=== PATIENT | male | born 1995 | race Caucasian/White ===

== ENCOUNTER 2018-09-22 17:11 | Emergency (ER) | payer BC, OTHER ==
[2018-09-22 17:28] VITALS: BP 152/76
--- NOTE | 2018-09-22 18:17 | UC ---
Eye Complaint HPI - HPI Summary HPI Summary: 23 y/o male presents to the urgent care c/o of left eye irritation and mild pain in the left upper eye lid for the past week. Pain at touch is 2/10. He has applied some lubricant eye drops and hot washcloth w/o any improvement. Pt denies visual changes, ONEILL, dizziness, fever, URI, abdominal pain, N/V/D, eye discharge, photophobia,FB, . Pt is not wearing contact lenses. - History of Current Complaint Chief Complaint: UCEye Stated Complaint: LEFT EYE CONCERN Time Seen by Provider: 09/22/18 17:45 Hx Obtained From: Patient Onset/Duration: Gradual Onset, Lasting Weeks - 1 week, Still Present, Worse Since - today Timing: Constant Severity Initially: Mild Severity Currently: Mild Pain Intensity: 2 Pain Scale Used: 0-10 Numeric Location of Injury: Eye Lid (upper) - left upper eyelid pain Character: Dull Aggravating Factor(s): Blinking Alleviating Factor(s): Nothing Associated Signs And Symptoms: Negative: Negative, Photophobia, Drainage (Clear) , Drainage (Purulent), Vision Impairment Bilateral, Fever, Swelling - Risk Factors Penetrating Injury Risk Factor: Negative Globe Rupture Risk Factors: Negative Acute Glaucoma Risk Factors: Negative Optic Artery Occlusion Risk Factors: Negative - Allergies/Home Medications Allergies/Adverse Reactions: Allergies Allergy/AdvReac Type Severity Reaction Status Date / Time No Known Allergies Allergy Verified 09/22/18 17:24 PMH/Surg Hx/FS Hx/Imm Hx Previously Healthy: Yes - Pt denies PMHX - Surgical History Surgical History: None - Family History Known Family History: Positive: None - Pt denies FMHX - Social History Occupation: Employed Full-time Lives: With Family Alcohol Use: Rare Substance Use Type: None Smoking Status (MU): Never Smoked Tobacco Review of Systems All Other Systems Reviewed And Are Negative: Yes Constitutional: Positive: Negative Skin: Positive: Negative Eyes: Positive: Other - left upper eyelid pain and left eye irritation. Negative: Blurred Vision, Diplopia, Drainage, Eye Redness, Photophobia ENT: Positive: Negative Respiratory: Positive: Negative Cardiovascular: Positive: Negative Gastrointestinal: Positive: Negative Genitourinary: Positive: Negative Motor: Positive: Negative Neurovascular: Positive: Negative Musculoskeletal: Positive: Negative Neurological: Positive: Negative Psychological: Positive: Negative Is Patient Immunocompromised?: No Physical Exam - Summary Physical Exam Summary: Vital Signs Reviewed: Yes General: Well appearing, well nourished male in no apparent pain distress Eyes: Positive: Conjunctiva Inflamed - Visual acuity: WNL,Visual ag: full to confrontation.discrete periorbital soft tissue swelling at the LF upper eyelid with erythema and internal white small pustule in the medial side of eyelid, tender to palpation. PERRLA, EOMI intact w/out limitation or complaint of pain. eyelashes clear. mild tearing and clear drainage observed. No ciliary flush. No chemosis, No photophobia. Normal fundoscopic exam; no proptosis, exophthalmos, nystagmus. ENT: Positive: Normal ENT inspection, Hearing grossly normal, Pharynx normal, Nasal congestion, Nasal drainage - clear, TMs normal - B/L external ear canal clear , TM's WNL. Negative: Tonsillar swelling, Tonsillar exudate Neck: Positive: Supple, Nontender, No Lymphadenopathy Respiratory: Positive: Chest nontender, Lungs clear, Normal breath sounds, No respiratory distress Cardiovascular: Positive: RRR, No Murmur, Pulses Normal, Brisk Capillary Refill Abdomen Description: Positive: Nontender, No Organomegaly, Soft. Negative: CVA Tenderness (R), CVA Tenderness (L) Bowel Sounds: Positive: Present Musculoskeletal: Positive: Strength Intact, ROM Intact, No Edema Neurological Exam: Normal Psychological Exam: Normal Skin Exam: Normal Triage Information Reviewed: Yes Vital Signs: Initial Vital Signs Temp 98.7 F 09/22/18 17:24 Pulse 101 09/22/18 17:24 Resp 16 09/22/18 17:24 BP 152/76 09/22/18 17:24 Pulse Ox 99 09/22/18 17:24 Eye Complaint Course/Dx - Course Course Of Treatment: 23 y/o male presents to the urgent care c/o of left eye irritation and mild pain in the left upper eye lid for the past week. Pain at touch is 2/10. He has applied some lubricant eye drops and hot washcloth w/o any improvement. Pt denies visual changes, ONEILL, dizziness, fever, URI, abdominal pain, N/V/D, eye discharge, photophobia,FB, . Pt is not wearing contact lenses. Hx obtained. left eye irrigated w/ saline water no FB observed. Pt w/ an left upper eyelid w / internal hordeolum on examination. Pt Rx Bacitracin Ophthalmic Ointment. Pt advised to apply warm compresses and massage the eye with gentle pressure 4-5 times for 10-15min throughout the day. Then apply ABX and if not improvement of symptoms to f/u with dredge boat engineer Dr Herrera or his PCP for further evaluation and treatment. Pt's BP is elevated today advised to decrease salt in diet, monitor BP and f/u with PCP for further management. Pt understood and agreed with plan of care. - Differential Dx/Diagnosis Differential Diagnosis/HQI/PQRI: Conjunctivitis, Corneal Abrasion, Periorbital Cellulitis, Uveitis, Other - hodeolum Provider Diagnosis: Hordeolum internum left upper eyelid, Elevated BP without diagnosis of hypertension Discharge - Sign-Out/Discharge Documenting (check all that apply): Patient Departure All imaging exams completed and their final reports reviewed: No Studies - Discharge Plan Condition: Stable Disposition: HOME Prescriptions: Erythromycin TOPICAL GEL* [Erythromycin OPTH OINT*] 1 applic TOPICAL TID #1 oint Patient Education Materials: Meche (ED) Referrals: [facility] [place] [facility] [Outside] - 3 Days Sharon BERRY,Jovita [Medical Doctor] - If Needed Additional Instructions: 1-Please apply ophthalmic ointment in your LF eye as directed. Please apply warm compresses and massage the eye with gentle pressure 4-5 times for 10-15min throughout the day 2- If you do not improve or if symptoms worsen please f/u with your PCP or dredge boat engineer DR Herrera in 3 days for further evaluation and treatment 3- Your BP is elevated today. please decrease salt in your diet, monitor BP and if it continues to be elevated please f/u with your PCP for further management. - Billing Disposition and Condition Condition: STABLE Disposition: Home
== END 2018-09-22 18:29 | disposition home or self-care (01) ==
LOC: UCCORT 17:11
DX: H00.024 Hordeolum internum left upper eyelid (principal); R03.0 Elevated blood-pressure reading, without diagnosis of hypertension
CPT/HCPCS: 99202; G0463